=== PATIENT | female | born 1970 ===

== ENCOUNTER 2017-10-22 23:10 | Emergency (ER) | payer SELFPAY ==
[2017-10-22 23:11] VITALS: BMI 29.0
[2017-10-22 23:42] VITALS: TEMP 99.3
--- NOTE | 2017-10-23 00:05 | ED PDOC ---
HPI: General Adult Time Seen by Provider: 10/22/17 23:40 Chief Complaint (Nursing): Upper Extremity Problem/Injury Chief Complaint (Provider): headache, arm pain, anxiety History Per: Patient, Applied Exercise Physiologist (#[id number]) History/Exam Limitations: no limitations Onset/Duration Of Symptoms: Hrs (4) Current Symptoms Are (Timing): Still Present Severity: Moderate Additional Complaint(s): 47yo female hx DM presents c/o neck pain and headache with parasthesias to right arm and bilateral face since approximately 8pm this evening. Patient is tearful and anxious, when questioned she states she has "many personal problems and had a discussion tonight which made things worse" but would not elaborate further on personal issues. She denies chest, abdominal or back pain. Denies syncope, difficulty ambulating, suicidal thoughts or change vision or speech. Denies trauma or injury. NIHSS Stroke Scale - Date/Time Evaluation Performed Date Performed: 10/22/17 Time Performed: 11:50 When Was NIHSS Performed: Baseline - How Severe is the Stroke Level of Consciousness: 0=Alert LOC to Questions: 0=Both comments correct LOC to commands: 0=Obeys both correctly Best Gaze: 0=Normal Visual: 0=No visual loss Facial: 0=Normal Motor Arm - Left: 0=No drift Motor Arm - Right: 1=Drift noted before 10 sec Motor Leg - Left: 0=No drift Motor Leg - Right: 0=No drift Limb Ataxia: 1=Present Upper or Lower Sensory: 0=Normal Best Language: 0=No aphasia Dysarthia: 0=Normal articulation Extinction & Inattention (Neglect): 0=Normal, no object Score: 2 Past Medical History Reviewed: Historical Data, Nursing Documentation, Vital Signs Vital Signs: Last Vital Signs Temp 99.3 F 10/22/17 23:29 Pulse 114 H 10/22/17 23:29 Resp 20 10/22/17 23:29 BP 211/125 H 10/22/17 23:29 Pulse Ox 98 10/22/17 23:29 - Medical History PMH: Diabetes, Hypercholesterolemia Denies: Chronic Kidney Disease - Surgical History Surgical History: - Family History Family History: States: Unknown Family Hx - Social History Current smoker - smoking cessation education provided: No Alcohol: None - Home Medications Home Medications: Ambulatory Orders Medication Instructions Recorded GlipiZIDE [Glucotrol] 10 mg PO DAILY #0 tab 12/18/15 Metformin HCl [Glucophage] 1,000 mg PO BID #0 tablet 12/18/15 - Allergies Allergies/Adverse Reactions: Allergies Allergy/AdvReac Type Severity Reaction Status Date / Time No Known Allergies Allergy Verified 09/18/15 18:08 Review of Systems ROS Statement: Except As Marked, All Systems Reviewed And Found Negative Constitutional: Negative for: Fever ENT: Negative for: Nose Discharge, Throat Pain Cardiovascular: Positive for: Palpitations. Negative for: Chest Pain Respiratory: Negative for: Cough, Shortness of Breath Gastrointestinal: Negative for: Abdominal Pain Genitourinary Female: Negative for: Dysuria Musculoskeletal: Positive for: Neck Pain, Shoulder Pain, Arm Pain. Negative for : Back Pain, Hand Pain, Leg Pain, Foot Pain Skin: Negative for: Rash, Lesions Neurological: Positive for: Weakness, Numbness, Headache, Dizziness. Negative for: Change in Speech, Confusion Psych: Positive for: Anxiety, Depression. Negative for: Suicidal ideation Physical Exam - Reviewed Nursing Documentation Reviewed: Yes Vital Signs Reviewed: Yes - Physical Exam Appears: Positive for: Non-toxic, No Acute Distress Head Exam: Positive for: ATRAUMATIC, NORMAL INSPECTION, NORMOCEPHALIC Skin: Positive for: Normal Color, Warm, DRY Eye Exam: Positive for: EOMI, Normal appearance, PERRL ENT: Positive for: Normal ENT Inspection Neck: Positive for: Normal, Painless ROM Cardiovascular/Chest: Positive for: Regular Rate, Rhythm Respiratory: Positive for: CNT, Normal Breath Sounds Gastrointestinal/Abdominal: Positive for: Soft. Negative for: Tenderness Back: Positive for: Normal Inspection Extremity: Positive for: Normal ROM Neurologic/Psych: Positive for: Alert, policy services representative II-XII (intact), Oriented, Motor/ Sensory Deficits (strength 5/5 symmetric, sensation grossly intact), Mood/ Affect (anxious tearful). Negative for: Aphasia, Facial Droop - ECG O2 Sat by Pulse Oximetry: 98 Pulse Ox Interpretation: Normal Medical Decision Making Medical Decision Making: workup initiated for marked HTN in setting of headache, neck pain and neurologic symptoms of parasthesias complicated by anxiety and personal social stressors. labs, EKG, CT brain/ CSpine, labetolol, anxiolysis, tylenol. Endorse Dr Gonzalez 12MN Disposition - Clinical Impression Clinical Impression: Headache, Arm pain, Accelerated hypertension - Patient ED Disposition Is Patient to be Admitted: Transfer of Care - Disposition Referrals: Mariana Salamanca MD [Primary Care Provider] - Disposition: Transfer of Care Disposition Time: 00:01 Condition: FAIR Patient Signed Over To: Domonique Gonzalez Handoff Comments: pending workup dispo and diagnosis
[2017-10-23] MEDS ORDERED: Labetalol 5 mg/ml Inj 20ML IVP STA (00:06)
[2017-10-23 00:37] LABS: BASO % 0.2 % (0.0-2.0); EOS # 0.1 K/uL (0.0-0.7); EOS % 0.9 % (0.0-4.0); HEMOGLOBIN 15.7 g/dL (12.0-16.0); LYMPH % 34.1 % (20.0-40.0); MEAN CELL VOLUME 92.4 fl (81.0-99.0); MEAN CORPUSCULAR HEMOGLOBIN 32.3 pg (27.0-31.0); MEAN CORPUSCULAR HGB CONC 34.9 g/dL (33.0-37.0); MEAN PLATELET VOLUME 8.4 fl (7.2-11.7); MONO # 0.3 K/uL (0.0-0.8); MONO % 4.8 % (0.0-10.0); NEUT # 3.5 K/uL (1.8-7.0); NRBC % 0.1 % (0.0-0.0); RBC 4.86 Mil/uL (3.80-5.20); WHITE BLOOD COUNT 5.9 K/uL (4.8-10.8)
[2017-10-23 00:42] LABS: INR 0.9
[2017-10-23 00:44] LABS: PARTIAL THROMBOPLASTIN TIME 34.2 Seconds (25.6-37.1)
--- NOTE | 2017-10-23 00:54 | ED PDOC ---
- Laboratory Results Result Diagrams: 10/23/17 00:20 10/23/17 00:20 - ECG O2 Sat by Pulse Oximetry: 98 Medical Decision Making Medical Decision Makin Received endorsement from Dr. Collins. Patient with very elevated blood pressure , headache, and anxiety. Pending ER workup, reassessment, crisis evaluation, and final disposition. EXAM: CT Head Without Intravenous Contrast CLINICAL HISTORY: 47 years old, female; Pain; Headache TECHNIQUE: Axial computed tomography images of the head/brain without intravenous contrast. All CT scans at this facility use at least one of these dose optimization techniques: automated exposure control; mA and/or kV adjustment per patient size (includes targeted exams where dose is matched to clinical indication); or iterative reconstruction. Coronal and sagittal reformatted images were created and reviewed. COMPARISON: No relevant prior studies available. FINDINGS: Brain: Unremarkable. Ventricles: Unremarkable. Bones/joints: Unremarkable. No acute fracture. Soft tissues: Unremarkable. Sinuses: Unremarkable as visualized. Mastoid air cells: Unremarkable as visualized. IMPRESSION: No acute intracranial pathology or traumatic injury. Thank you for allowing us to participate in the care of your patient. Dictated and Authenticated by: Melissa Lees MD 10/23/2017 12:49 AM Eastern Time ([place] & [place] EXAM: CT Cervical Spine Without Intravenous Contrast CLINICAL HISTORY: 47 years old, female; Pain; Neck pain; Additional info: Neck pain radiating r arm TECHNIQUE: Axial computed tomography images of the cervical spine without intravenous contrast. All CT scans at this facility use at least one of these dose optimization techniques: automated exposure control; mA and/or kV adjustment per patient size (includes targeted exams where dose is matched to clinical indication); or iterative reconstruction. Coronal and sagittal reformatted images were created and reviewed. COMPARISON: No relevant prior studies available. FINDINGS: Vertebrae: Unremarkable. No acute fracture. Discs/spinal canal/neural foramina: No acute findings. Soft tissues: Unremarkable. Thyroid: Mild thyromegaly. Lung apices: Unremarkable as visualized. IMPRESSION: No acute C-spine traumatic injury. Thank you for allowing us to participate in the care of your patient. Dictated and Authenticated by: Melissa Lees MD 10/23/2017 12:51 AM Eastern Time ([place] & [place]) 0130 Patients blood pressure considerably improved after only anxiolytics. No blood pressure medication was given. Patient also reports feeling better. She admits that there is some tension at home, but denies any safety issues and declines any psychiatric evaluation. She denies any homicidal or suicidal ideations, and hallucinations. Strongly advised lifestyle changes to improve blood pressure and mental health. Patient to follow up with clinic. Scribe Attestation: Documented by Thad Good, acting as a scribe for Domonique Gonzalez MD. Provider Scribe Attestation: All medical record entries made by the Scribe were at my direction and personally dictated by me. I have reviewed the chart and agree that the record accurately reflects my personal performance of the history, physical exam, medical decision making, and the department course for this patient. I have also personally directed, reviewed, and agree with the discharge instructions and disposition. Disposition - Clinical Impression Clinical Impression: Headache, Arm pain, Accelerated hypertension - POA Present On Arrival: None - Disposition Referrals: Mariana Salamanca MD [Primary Care Provider] - 10/23/17 Disposition: Routine/Home Disposition Time: 01:30 Condition: IMPROVED Instructions: High Blood Pressure in Adults, Headache, Adult (DC), Stress Forms: [employer] (Malay) Print Language: LATVIAN
[2017-10-23 01:04] LABS: BLOOD UREA NITROGEN 9 mg/dl (7-17)
[2017-10-23 01:05] LABS: CALCIUM 10.9 mg/dL (8.4-10.2); GFR NON-AFRICAN AMERICAN 1
[2017-10-23 01:06] LABS: ALBUMIN 4.7 g/dL (3.5-5.0); ALT/SGPT 84 U/L (9-52); AST/SGOT 95 U/L (14-36); B-TYPE NATRIURETIC PEPTIDE 27.3 pg/ml (0-450)
[2017-10-23 01:45] VITALS: BP 150/90; PULSE 103; RESP 18
[2017-10-23 04:36] VITALS: O2SAT 98
[2017-10-23 08:58] LABS: PROTHROMBIN TIME 9.9 Seconds (9.8-13.1)
--- NOTE | 2017-10-23 09:34 | RAD ---
Date of service: 10/23/2017 HISTORY: neck pain COMPARISON: Portable chest 12/16/2015. TECHNIQUE: Chest PA and lateral FINDINGS: LUNGS: No active pulmonary disease. PLEURA: No significant pleural effusion identified. No pneumothorax apparent. CARDIOVASCULAR: Normal. OSSEOUS STRUCTURES: No significant abnormalities. VISUALIZED UPPER ABDOMEN: Normal. OTHER FINDINGS: None. IMPRESSION: No interval acute cardiopulmonary disease appreciated.
--- NOTE | 2017-10-23 09:41 | CARD ---
APPROVED REPORT Date of service: 10/23/2017 <Conclusion> Normal sinus rhythm Cannot rule out Inferior infarct, age undetermined Cannot rule out Anterior infarct, age undetermined Abnormal ECG
--- NOTE | 2017-10-23 10:23 | CT ---
Date of service: 10/23/2017 PROCEDURE: CT HEAD WITHOUT CONTRAST. HISTORY: Headache COMPARISON: None available. TECHNIQUE: Axial computed tomography images were obtained through the head/brain without intravenous contrast. Radiation dose: Total exam DLP = 760.77 mGy-cm. This CT exam was performed using one or more of the following dose reduction techniques: Automated exposure control, adjustment of the mA and/or kV according to patient size, and/or use of iterative reconstruction technique. FINDINGS: HEMORRHAGE: No acute parenchymal, subarachnoid or extra-axial hemorrhage. BRAIN: No obvious parenchymal nor extra-axial mass or collection seen on this noncontrast study. Mild generalized volume loss. VENTRICLES: No obstructive hydrocephalus. CALVARIUM: Unremarkable. PARANASAL SINUSES: Frontal sinuses are underpneumatized/ hypoplastic. Mild mucosal thickening seen in the left chamber sphenoid sinus. There is also minimal mucosal thickening in the few ethmoid air cells. MASTOID AIR CELLS: Mastoid air complexes are mildly 100 pneumatized and sclerotic. OTHER FINDINGS: None. IMPRESSION: No acute intracranial hemorrhage. Mild generalized volume loss.
--- NOTE | 2017-10-23 11:48 | CT ---
Date of service: 10/23/2017 PROCEDURE: CT Cervical Spine without contrast HISTORY: neck pain radiating R arm COMPARISON: None available. TECHNIQUE: Axial computed tomography images were obtained of the cervical spine without the use of intravenous contrast. Coronal and sagittal reformatted images were created and reviewed. Radiation dose: Total exam DLP = 316.55 mGy-cm. This CT exam was performed using one or more of the following dose reduction techniques: Automated exposure control, adjustment of the mA and/or kV according to patient size, and/or use of iterative reconstruction technique. FINDINGS: VERTEBRAE: Straightened curvature without fracture or spondylolisthesis identified. No destructive bony lesion evident. C1-2 articulation is unremarkable swells craniocervical junction. The odontoid process appears intact. DISCS/SPINAL CANAL/NEURAL FORAMINA: No significant central canal or neural foraminal stenosis. Discs heights are grossly preserved. PARASPINAL SOFT TISSUES: Unremarkable. OTHER FINDINGS: None. IMPRESSION: Straightened cervical curvature without fracture or spondylolisthesis identified. Concordant preliminary report from [facility], 10/23/2017.
== END 2017-10-23 01:54 | disposition home or self-care (01) ==
LOC: H.ER 23:10
DX: R51 Headache (principal); M79.601 Pain in right arm; I16.0 Hypertensive urgency; E11.9 Type 2 diabetes mellitus without complications; E78.00 Pure hypercholesterolemia, unspecified; F41.9 Anxiety disorder, unspecified; I10 Essential (primary) hypertension; Z79.84 Long term (current) use of oral hypoglycemic drugs
CPT/HCPCS: 70450; 71046; 72125; 80053; 81025; 82550; 83880; 84484; 85025; 85610; 85730; 93005; 96374; 99283; J2060